=== PATIENT | male | born 1995 | race Caucasian/White ===

== ENCOUNTER 2019-09-10 18:38 | Emergency (ER) | payer MEDICAID ==
[~2019-09-10] VITALS: Ht 180.3 cm; Wt 85.3 kg
[2019-09-10 18:55] VITALS: BP_SYST 161
[2019-09-10 19:10] VITALS: BP_SYST 161
== END 2019-09-10 19:10 | disposition home or self-care (01) ==
LOC: SED 18:38
DX: I10 Essential (primary) hypertension (principal); F41.9 Anxiety disorder, unspecified; F15.10 Other stimulant abuse, uncomplicated; F19.10 Other psychoactive substance abuse, uncomplicated; Z76.0 Encounter for issue of repeat prescription
CPT/HCPCS: 99281